=== PATIENT | male | born 1990 | race Caucasian/White ===

== ENCOUNTER 2018-09-25 12:24 | Emergency (ER) | payer OTHER ==
[2018-09-25 12:39] VITALS: BP 150/80
--- NOTE | 2018-09-25 12:43 | UC ---
Abdominal Pain Female HPI - HPI Summary HPI Summary: 3 days of left side mid abdomen/llq pain---no fevers nausea or diarrhea, was able to eat breakfeast this am---no concerns with urination, - History of Current Complaint Chief Complaint: UCAbdominalPain Stated Complaint: LT SIDE PAIN Time Seen by Provider: 09/25/18 12:50 Hx Obtained From: Patient ?: No Onset/Duration: Sudden Onset, Lasting Days - 3, Still Present Timing: Constant Pain Intensity: 4 Pain Scale Used: 0-10 Numeric Location: Discrete At: LLQ Radiates: No Radiates to: LLQ Character: Cramping Aggravating Factor(s): Movement, Deep Breaths Alleviating Factor(s): Position Associated Signs and Symptoms: Positive: Negative Allergies/Adverse Reactions: Allergies Allergy/AdvReac Type Severity Reaction Status Date / Time No Known Allergies Allergy Verified 09/25/18 12:39 Home Medications: Home Medications NK [No Home Medications Reported] 09/25/18 [History Confirmed 09/25/18] PMH/Surg Hx/FS Hx/Imm Hx Previously Healthy: Yes - Surgical History Surgical History: Yes Surgery Procedure, Year, and Place: meniscus fx femur,septoplasty - Family History Known Family History: Positive: Diabetes - Social History Occupation: Employed Full-time Lives: With Family Alcohol Use: Occasionally Substance Use Type: None Smoking Status (MU): Current Some Day Smoker Review of Systems All Other Systems Reviewed And Are Negative: Yes Constitutional: Positive: Negative Skin: Positive: Negative Eyes: Positive: Negative ENT: Positive: Negative Respiratory: Positive: Negative Cardiovascular: Positive: Negative Gastrointestinal: Positive: Abdominal Pain Genitourinary: Positive: Negative Motor: Positive: Negative Neurovascular: Positive: Negative Musculoskeletal: Positive: Negative Neurological: Positive: Negative Psychological: Positive: Negative Is Patient Immunocompromised?: No Physical Exam Triage Information Reviewed: Yes Appearance: Well-Appearing, No Pain Distress, Obese Vital Signs: Initial Vital Signs Temp 98 F 09/25/18 12:34 Pulse 100 09/25/18 12:34 Resp 20 09/25/18 12:34 BP 150/80 09/25/18 12:34 Pulse Ox 100 09/25/18 12:34 Vital Signs Reviewed: Yes Eye Exam: Normal Eyes: Positive: Conjunctiva Clear ENT Exam: Normal ENT: Positive: Normal ENT inspection, Hearing grossly normal. Negative: Trismus , Muffled voice, Hoarse voice Dental Exam: Normal Neck exam: Normal Neck: Positive: Supple, Nontender Respiratory Exam: Normal Respiratory: Positive: Chest non-tender, Lungs clear, Normal breath sounds, No respiratory distress, No accessory muscle use Cardiovascular Exam: Normal Cardiovascular: Positive: RRR, No Murmur, Pulses Normal, Brisk Capillary Refill Abdomen Description: Positive: No Organomegaly, Soft, Other: - llq tenderness. Negative: CVA Tenderness (R), CVA Tenderness (L), Distended, Guarding, McBurney' s Point Tenderness Bowel Sounds: Positive: Present Musculoskeletal Exam: Normal Musculoskeletal: Positive: Strength Intact, ROM Intact, No Edema Neurological Exam: Normal Neurological: Positive: Alert, Muscle Tone Normal Psychological Exam: Normal Skin Exam: Normal Diagnostics - Laboratory Lab Results: + protien and lyced RBC Abd Pain Female Course/Dx - Course Course Of Treatment: patient offer a trip to ed for conclusive dx he refused preferring to go to pcp- --education provided for worsening or change in sx to go to the ED and follow with [facility] on Thursday--increase fluids strain urine - Differential Dx/Diagnosis Provider Diagnosis: Left flank pain, Hematuria Discharge - Sign-Out/Discharge Documenting (check all that apply): Patient Departure All imaging exams completed and their final reports reviewed: No Studies - Discharge Plan Condition: Stable Disposition: HOME Patient Education Materials: Renal Colic (ED), Hematuria (ED), How to Strain Your Urine (ED), Hypertension (ED), Flank Pain (ED) Referrals: [facility] [Outside] - 2 Days - Billing Disposition and Condition Condition: STABLE Disposition: Home
== END 2018-09-25 14:03 | disposition home or self-care (01) ==
LOC: UCEAST 12:24
DX: R10.9 Unspecified abdominal pain (principal); R31.9 Hematuria, unspecified; F17.210 Nicotine dependence, cigarettes, uncomplicated
CPT/HCPCS: 81003; 99201; G0463